=== PATIENT | female | born 1980 | race Caucasian/White ===

== ENCOUNTER 2023-10-31 22:49 | Inpatient (IN) ==
[2023-10-31] MEDS ORDERED: 0.9 % SODIUM CHLORIDE 1,000 ML IV ONE (23:00)
[2023-10-31] MEDS ORDERED: KETOROLAC 30 MG/ML VIAL IV ONE (23:15)
[2023-10-31] MEDS ORDERED: oxyCODONE IR 5 MG TABLET PO ONE (23:15)
[2023-10-31] MEDS ORDERED: ONDANSETRON 4 MG/2 ML VIAL IV ONE (23:26)
[2023-11-01] MEDS ORDERED: HYDROmorphone 1 MG/ML SYRINGE IV ONE (00:30)
[2023-11-01 00:40] LABS: Basophils # (Auto) 0.05 K/mcL (0.00-0.30); Basophils % (Auto) 0.7 % (0.0-2.0); Eosinophils # (Auto) 0.25 K/mcL (0.00-0.70); Eosinophils % (Auto) 3.5 % (0.0-7.0); Hematocrit 32.8 % (34.1-44.9); Hemoglobin 10.2 g/dL (11.2-15.7); Lymphocytes # (Auto) 1.93 K/mcL (1.50-4.80); Lymphocytes % (Auto) 27.4 % (15.5-49.0); Mean Cell Volume 80.6 fL (80.0-100.0); Mean Corpuscular HGB Conc 31.1 g/dL (31.0-36.0); Mean Platelet Volume 11.1 fL (8.8-12.5); Monocytes # (Auto) 0.46 K/mcL (0.10-0.90); Monocytes % (Auto) 6.5 % (1.0-12.0); Neutrophils % (Auto) 61.8 % (38.0-78.0); Platelet Count 315 K/mcL (140-440); RBC 4.07 M/mcL (3.59-5.38); WBC 7.1 K/mcL (4.5-11.0)
[2023-11-01 00:50] LABS: Appearance,Urine Clear (Clear); Bilirubin,Urine Negative (Negative); Color,Urine Yellow; Culture Indicated,Urine No; Glucose,Urine (UA) Negative (Negative); Ketones,Urine Trace mg/dL (Negative); Leukocyte Esterase,Urine Negative /uL (Negative); Nitrate,Urine Negative (Negative); Protein,Urine Negative (Negative); Specific Gravity,Urine 1.025 (1.000-1.035); Urine Blood Moderate ery/mcL (Negative); Urine RBC 0 /hpf (0-3); Urine Squamous Epithelial Cell 0 /hpf (0-4); Urine WBC 0 /hpf (0-4); Urobilinogen,Urine Normal
[2023-11-01 01:00] LABS: ALT/SGPT 11 U/L (<40); AST/SGOT 21 U/L (<32); Albumin 3.6 gm/dL (3.2-5.2); Albumin/Globulin Ratio 1.7 (1.0-2.3); Alkaline Phosphatase 77 U/L (39-117); Bilirubin,Total 0.3 mg/dL (0.1-1.0); Blood Urea Nitrogen 16 mg/dL (6-20); Calcium 8.2 mg/dL (8.6-10.4); Carbon Dioxide 21 mmol/L (22-30); Chloride 103 mmol/L (96-108); Globulin 2.1 gm/dL (2.2-3.7); Glomerular Filtration Rate 77; Glucose 93 mg/dL (70-105)
[2023-11-01] MEDS: HYDROmorphone 0.5 MG/0.5 ML SYRINGE IV PRN ×10 (03:07→23:50)
[2023-11-01] MEDS ORDERED: GENTAMICIN PER PHARMACY IV ONE (07:40)
[2023-11-01] MEDS ORDERED: ceFAZolin 2 GM in DEXTROSE 5% IN WATER 50 ML IV SCH (08:00)
[2023-11-01] MEDS ORDERED: GENTAMICIN SULFATE 210 MG in 0.9 % SODIUM CHLORIDE 250 ML IV SCH (08:00)
[2023-11-01] MEDS: ONDANSETRON 4 MG ODT TABLET SL PRN (19:36)
[2023-11-01] MEDS: DEXTROSE 5%-1/2NS 1,000 ML IV SCH ×2 (20:16→21:40)
[2023-11-02] MEDS: HYDROmorphone 0.5 MG/0.5 ML SYRINGE IV PRN ×4 (02:06→09:51)
[2023-11-02] MEDS: ONDANSETRON 4 MG ODT TABLET SL PRN ×2 (02:08→06:26)
[2023-11-02] MEDS ORDERED: ceFAZolin 2 GM in DEXTROSE 5% IN WATER 50 ML IV SCH (06:30)
[2023-11-02] MEDS ORDERED: GENTAMICIN SULFATE 210 MG in 0.9 % SODIUM CHLORIDE 250 ML IV SCH (06:30)
[2023-11-02] MEDS ORDERED: IPRATROPIUM/ALBUTEROL 3 ML AMPUL.NEB NEB PRN ×2 (06:48→07:29)
[2023-11-02] MEDS ORDERED: SCOPOLAMINE 1 PATCH PATCH TOPICAL PRN (06:48)
[2023-11-02] MEDS ORDERED: LIDOCAINE 2% URO-JET 10 ML JEL.PF.APP UR ONE (06:52)
[2023-11-02] MEDS ORDERED: IOVERSOL 20 ML VIAL IV ONE (06:52)
[2023-11-02] MEDS ORDERED: PROPOFOL 200 MG/20 ML VIAL IV ONE (06:55)
[2023-11-02] MEDS ORDERED: fentaNYL 100 MCG/2 ML VIAL ONE (06:56)
[2023-11-02] MEDS ORDERED: MIDAZOLAM 2 MG/2 ML VIAL ONE (06:57)
[2023-11-02] MEDS ORDERED: SCOPOLAMINE 1 PATCH PATCH TOPICAL ONE (07:15)
[2023-11-02] MEDS ORDERED: NALOXONE HCL 0.4 MG/ML VIAL IV PRN (07:29)
[2023-11-02] MEDS ORDERED: FLUMAZENIL 0.1 MG/ML ML IV PRN (07:29)
[2023-11-02] MEDS ORDERED: ONDANSETRON 4 MG/2 ML VIAL IV PRN ×2 (07:29→08:41)
[2023-11-02] MEDS ORDERED: LACTATED RINGERS 1,000 ML IV SCH (07:30)
[2023-11-02] MEDS ORDERED: ONDANSETRON 4 MG/2 ML VIAL ONE (08:01)
[2023-11-02] MEDS ORDERED: DEXAMETHASONE 10 MG/ML VIAL ONE (08:12)
[2023-11-02] MEDS ORDERED: HYDROcodone/APAP 5/325MG TABLET PO PRN (08:41)
[2023-11-02] MEDS ORDERED: HYDROmorphone 1 MG/ML SYRINGE IV PRN (08:41)
[2023-11-02] MEDS: fentaNYL 100 MCG/2 ML VIAL IV PRN ×2 (09:00→09:08)
[2023-11-02] MEDS ORDERED: 0.9 % SODIUM CHLORIDE 10 ML SYRINGE IV SCH (14:00)
== END 2023-11-02 13:25 | disposition home or self-care (01) | DRG 661 ==
LOC: ED 22:49 → MEDSUR 11-01 02:40
PROVIDERS: ADMIT Urology; ATTEND Urology